=== PATIENT | female | born 1970 | race Asian ===

== ENCOUNTER 2019-02-14 07:55 | Outpatient (CLI) | payer OTHER | END 2019-02-14 08:20 | disposition home or self-care (01) | LOC: LAB 07:55 | DX: Z00.8 Encounter for other general examination (principal) ==

== ENCOUNTER 2020-12-30 07:47 | Outpatient (CLI) | payer OTHER | END 2020-12-30 08:10 | disposition home or self-care (01) | LOC: SONOGRAMA 07:47 | PROVIDERS: ATTEND Internal Medicine Hepatology | DX: R10.84 Generalized abdominal pain (principal); B18.1 Chronic viral hepatitis B without delta-agent ==

== ENCOUNTER → 2021-03-02 08:35 | Outpatient (CLI) | payer OTHER ==
[~2021-03-02 08:35] MED LIST: VOLTAREN ARTHRI20 GM TOP
== END | disposition home or self-care (01) ==
LOC: LAB 08:35
PROVIDERS: ATTEND Physical Medicine & Rehabilitation
DX: R05 Cough (principal); R50.9 Fever, unspecified; R06.02 Shortness of breath; Z03.818 Encounter for observation for suspected exposure to other biological agents ruled out; Z20.822 Contact with and (suspected) exposure to COVID-19

== ENCOUNTER 2021-06-29 08:29 | Outpatient (CLI) | payer OTHER | END 2021-06-29 08:41 | disposition home or self-care (01) | LOC: MAMO-SONO 08:29 | DX: N60.19 Diffuse cystic mastopathy of unspecified breast (principal); N60.29 Fibroadenosis of unspecified breast ==

== ENCOUNTER → 2023-12-15 11:54 | Outpatient (CLI) | payer OTHER ==
[~2023-12-15 11:54] MED LIST changes: +BARACLUDE0.5 MG PO
== END | disposition home or self-care (01) ==
LOC: MAMO-SONO 11:54
PROVIDERS: ATTEND General Practice
DX: N63.11 Unspecified lump in the right breast, upper outer quadrant (principal); N63.21 Unspecified lump in the left breast, upper outer quadrant